=== PATIENT | female | born 1970 ===

== ENCOUNTER 2025-01-07 09:46 | Emergency (ER) | payer OTHER, SELFPAY ==
[2025-01-07] VITALS (8 sets, daily range): BP systolic 118–147; BP diastolic 67–78; PULSE 58–81; RESP 17–50; TEMP 36.9; O2SAT 97–100; BMI 26.4
--- NOTE | 2025-01-07 10:00 | ED.ALLEREA ---
HPI - Allergic Reaction General Chief complaint: Allergic Reaction Stated complaint: Bee sting on right hand Time Seen by Provider: 01/07/25 09:53 History of Present Illness HPI narrative: 55-year-old female history of ADHD stung by a bee in the right hand breaking out all over including chest abdomen back arms legs just prior to arrival here in ER did not take anything prior to arrival. Patient denies chest pain, shortness of breath, tongue swelling, difficulty swallowing, or speaking. Other than what is stated 14 point review of system is negative. Related Data Previous Rx's ?Medication ?Instructions ?Recorded epinephrine 0.3 mg/0.3 mL 0.3 mg (0.3 mL) IM Q5-15M PRN 01/07/25 injection, auto-injector anaphylaxis #2 ea famotidine 20 mg tablet (Pepcid) 20 mg PO BID #10 tabs 01/07/25 prednisone 20 mg tablet 20 mg PO BID #10 tabs 01/07/25 Allergies Allergy/AdvReac Type Severity Reaction Status Date / Time bee venom protein (honey bee) Allergy Verified 01/07/25 10:05 Sulfa (Sulfonamide Allergy Hives Verified 01/07/25 10:03 Antibiotics) Review of Systems Review of Systems ROS Unobtainable: All systems reviewed & are unremarkable except as noted in HPI and below Patient History Social History Smoking Status: Never smoker Exam Narrative Exam Narrative: GENERAL: [55] year old patient appears stated age. Well-developed patient, in mild distress. HEAD: Atraumatic. Normocephalic. EYES: Pupils equal round and reactive. Extraocular motions intact. No scleral icterus. No injection or drainage. ENT: Nose without bleeding, purulent drainage. Throat without erythema, tonsillar hypertrophy or exudate. Airway patent. NECK: Trachea midline. Non tender CARDIOVASCULAR: Regular rate and rhythm without murmurs, gallops, or rubs. RESPIRATORY: Clear to auscultation. Breath sounds equal bilaterally. No wheezes, rales, or rhonchi. GASTROINTESTINAL: Abdomen soft, non-tender, nondistended. EXTREMITIES: No edema or joint tenderness. BACK: Nontender without deformity or crepitance. No flank tenderness. NEURO: AOx3. SKIN: No rash or erythema of visible areas. Urticaria hives chest, abdomen, back, arms, legs Initial Vital Signs Initial Vital Signs: Vital Signs Temperature 98.4 F 01/07/25 10:02 Pulse Rate 80 01/07/25 10:02 Respiratory Rate 20 01/07/25 10:02 Blood Pressure 130/69 01/07/25 10:02 Pulse Oximetry 97 01/07/25 10:02 Oxygen Delivery Method Room Air 01/07/25 10:02 Course Orders Ordered: Famotidine (Famotidine 20 Mg/2 Ml Vial) 20 mg IV NOW EVERARDO Last Admin: 01/07/25 10:11 Dose: 20 mg Documented By: ERIC Discontinued Medications Diphenhydramine HCl (Diphenhydramine 50 Mg/Ml Vial) 50 mg IV NOW ONE Stop: 01/07/25 10:00 Last Admin: 01/07/25 10:11 Dose: 50 mg Documented By: ERIC Lactated Ringer's (Lactated Ringers) 1,000 mls @ 1,000 mls/hr IV BOLUS ONE Stop: 01/07/25 11:10 Last Admin: 01/07/25 10:13 Dose: 1,000 mls/hr Documented By: ERIC Methylprednisolone (Methylprednisolone 125 Mg/2 Ml Vial) 125 mg IV NOW ONE Stop: 01/07/25 10:00 Last Admin: 01/07/25 10:11 Dose: 125 mg Documented By: ERIC Vital Signs Vital signs: Vital Signs - 8 hr 01/07/25 10:02 01/07/25 10:02 01/07/25 10:03 Temperature 98.4 F Pulse Rate 80 81 Respiratory Rate 20 Blood Pressure 130/69 129/78 Pulse Oximetry 97 100 Oxygen Delivery Method Room Air 01/07/25 10:03 01/07/25 10:32 01/07/25 10:33 Temperature Pulse Rate 81 64 Respiratory Rate Blood Pressure 128/72 Pulse Oximetry 100 100 Oxygen Delivery Method 01/07/25 10:33 01/07/25 11:00 01/07/25 11:01 Temperature Pulse Rate 60 66 Respiratory Rate 19 50 H Blood Pressure 147/72 H Pulse Oximetry 100 100 Oxygen Delivery Method 01/07/25 11:01 Temperature Pulse Rate 67 Respiratory Rate 37 H Blood Pressure Pulse Oximetry 100 Oxygen Delivery Method MDM - Allergic Reaction MDM Narrative Medical decision making narrative: Vital signs, nurse triage note, medication list, previous ER visits, and all imaging study all reviewed. Patient given Solu-Medrol Benadryl Pepcid 1 L fluids. DC home on Pepcid and prednisone. Differential diagnosis allergic reaction to bee sting, airway compromise, shock. Discharge Plan Departure Patient Disposition: Home Clinical Impression: Allergic reaction Qualifiers: Encounter type: initial encounter Qualified Code(s): T78.40XA - Allergy, unspecified, initial encounter Instructions: DI for General Allergic Reactions Activity Restrictions/Additional Instructions: Return with new or worsening symptoms. Take your medicines as directed. Follow up PCP in 1-2 weeks if no improvement in symptoms. Prescriptions: New prednisone 20 mg tablet 20 mg PO BID Qty: 10 0RF famotidine [Pepcid] 20 mg tablet 20 mg PO BID Qty: 10 0RF epinephrine 0.3 mg/0.3 mL auto-injector 0.3 mg IM Q5-15M PRN (Reason: anaphylaxis) Qty: 2 0RF Rx Instructions: do not exceed 3 doses per episode Stand Alone Forms: Patient Portal/API
[2025-01-07] MEDS: FAMOTIDINE 20 MG/2 ML VIAL IV (10:11)
[2025-01-07] MEDS: diphenhydrAMINE 50 MG/ML VIAL IV (10:11)
[2025-01-07] MEDS: LACTATED RINGERS 1,000 ML 1000 ML IV (10:13)
== END 2025-01-07 12:03 | disposition home or self-care (01) ==
PROVIDERS: Emergency Provider Family Medicine
DX: T63.441A Toxic effect of venom of bees, accidental (unintentional), initial encounter (principal)
CPT/HCPCS: 36415; 96361; 96374; 96375; 99284; J1200; J2919